=== PATIENT | male | born 1955 | race Caucasian/White ===

== ENCOUNTER → 2023-07-28 19:25 | Outpatient (REF) | payer OTHER, SELFPAY | LOC: MRI 19:25 | PROVIDERS: ATTENDING PHYSICIAN Student in an Organized Health Care Education/Training Program | DX: M47.816 Spondylosis without myelopathy or radiculopathy, lumbar region (principal); M51.36 Other intervertebral disc degeneration, lumbar region | CPT/HCPCS: 72148; 73721 ==

== ENCOUNTER → 2023-08-26 13:23 | Outpatient (REF) | payer OTHER, SELFPAY | LOC: RAD 13:23 | PROVIDERS: ATTENDING PHYSICIAN Physician Assistant; FAMILY PHYSICIAN Family Medicine | DX: N13.30 Unspecified hydronephrosis (principal) | CPT/HCPCS: 76775 ==

== ENCOUNTER 2023-12-30 20:02 | Emergency (ER) | payer OTHER, SELFPAY ==
[2023-12-30 20:08] VITALS: BP 110/70
[2023-12-30 20:31] LABS: % Basophils 0.6 % (0-2); % Eosinophils 0.8 % (0-6); % Immature Granulocytes 0.3 % (0-0.5); % Lymphocytes 14.8 % (20.5-51.1); % Monocytes 6.2 % (1.7-9.3); % Neutrophils 77.3 % (42.2-75.2); Absolute Basophils 0.1 10^3/uL (0-0.2); Absolute Eosinophils 0.1 10^3/uL (0-0.7); Absolute Lymphocytes 1.5 10^3/uL (1.2-3.4); Absolute Monocytes 0.7 10^3/uL (0.1-0.6); Absolute Neutrophils 8.1 10^3/uL (1.4-6.5); Hematocrit 41.3 % (39.0-52.0); Hemoglobin 14.4 g/dL (13.0-18.0); Mean Corp Hgb Conc. 34.9 g/dL (33.0-37.0); Mean Corpuscular Hgb 31.3 pg (27.0-31.0); Mean Corpuscular Volume 89.8 fL (80.0-94.0); Mean Platelet Volume 9.4 fL (7.4-10.4); Nucleated Red Blood Cells % 0 % (-); Platelet Count 259 10^3/uL (130-400); Red Cell Dist. Width 13.1 % (11.5-14.5); White Blood Cell Count 10.4 10^3/uL (4.8-10.8)
[2023-12-30 20:41] LABS: Lactic Acid 0.8 mmol/L (0.7-2.0)
[2023-12-30 20:43] LABS: ALT (SGPT) 22 U/L (0-50); AST (SGOT) 30 U/L (17-59); Albumin 4.3 g/dl (3.5-5.0); Alkaline Phosphatase 93 U/L (38-126); Blood Urea Nitrogen 20 mg/dl (9-20); Calcium 9.5 mg/dl (8.4-10.2); Carbon Dioxide 28 mmol/L (22-30); Chloride 101 mmol/L (98-107); Glucose 99 mg/dl (70-99); Potassium 4.1 mmol/L (3.5-5.1); Sodium 137 mmol/L (135-145); Total Bilirubin 0.5 mg/dl (0.2-1.3); Total Protein 7.1 g/dl (6.3-8.2); eGFR > 60.00
--- NOTE | 2023-12-30 21:29 | ED.GENMED ---
History of Present Illness
General
Chief Complaint: Fever
Source: patient
Exam Limitations: none
Time Seen by Provider: 12/30/23 21:19
History of Present Illness
History of Present Illness:
68-year-old male presents with complaints of onset of chills. He states his Givens catheter was exchanged 2 days ago. He notes shaking chills at home but denies cough chest pain or abdominal pain. No other complaints at this time.
Phy Exam
Physical Exam
Physical Exam:
General: Well-appearing male no acute respiratory distress HEENT: Normocephalic atraumatic
Heart: Regular rate and rhythm no murmurs
Lungs: Clear no wheeze or rales
Abdomen is soft nontender nondistended no guarding rebound normal bowel sounds
Extremities: No cyanosis or edema
Course
Orders/Labs/Results
Orders:
Orders
12/30/23 20:13
Electrocardiogram (*1) Urgent
Reason for Study: Other
Other Reason for Exam: Possible Sepsis
Cardiac Monitoring- Treatment ONCE
EKG- Treatment ONCE
IV Insert/Care/Rem.- Treatment PRN
Straight cath- Treatment ONCE
O2 Therapy [RESP] Urgent
Titrate/Wean O2 to maintain O2 sat greater than (%): 93
Special Instructions: TO MAINTAIN CONTINUOUS O2 SATS > OR = 93%
Pulse Ox/cont/shift [RESP] Urgent
Quantity: 1
Special Instructions: CONTINUOUS
12/30/23 20:21
Complete Blood Count/With Diff Urgent
Comprehensive Metabolic Panel Urgent
Lactic Acid Q4H
Comment: ON ICE, CANCEL 2ND ORDER IF FIRST LACTIC ACID LEVEL <2
12/30/23 21:53
COVID-19 Antigen Urgent
Source: Nasal Swab
Urinalysis Reflex To Culture Urgent
Date Specimen was Collected: 12/30/23
Time Specimen was Collected: 20:13
Urine Microscopic Reflex Cult Urgent
Urine Culture Urgent
RAJESH Source: U
Specimen Description:
Date Specimen was Collected: 12/30/23
Time Specimen was Collected: 20:13
12/30/23 23:04
CefTRIAXone [Rocephin] 1,000 mg IV NOW STA
12/31/23 00:15
Lactic Acid Q4H
Comment: ON ICE, CANCEL 2ND ORDER IF FIRST LACTIC ACID LEVEL <2
Abnormal Lab Results
12/30/23 12/30/23
20:21 21:53
RBC 4.60 L 10^6/uL
(4.70-6.10)
MCH 31.3 H pg
(27.0-31.0)
Absolute Neuts (auto) 8.1 H 10^3/uL
(1.4-6.5)
Absolute Monos (auto) 0.7 H 10^3/uL
(0.1-0.6)
Neutrophils % 77.3 H %
(42.2-75.2)
Lymphocytes % 14.8 L %
(20.5-51.1)
Ur Occult Blood Reflex 1+ A
(Negative)
Urine Nitrite (Reflex) Positive A
(Negative)
Leukocyte Esterase Rfl 2+ A
(Negative)
Urine WBC (Reflex) 70-80 A /HPF
(0-5)
Urine Bacteria (Reflex) Moderate A
(Negative)
12/30/23 20:21
12/30/23 20:21
Vital Signs
Initial and Last Documented VS:
Initial Vital Signs
Temp Pulse Resp BP Pulse Ox
99.6 F 75 28 110/70 100
12/30/23 20:08 12/30/23 20:08 12/30/23 20:08 12/30/23 20:08 12/30/23 20:08
Last Documented Vital Signs
Temp Pulse Resp BP Pulse Ox
99.6 F 73 11 107/65 100
12/30/23 20:08 12/30/23 22:00 12/30/23 22:00 12/30/23 22:00 12/30/23 20:08
MDM/Problems Addressed
Differential Diagnosis Includes:
Onset of shaking chills today. Recent Givens catheter exchange. Question UTI versus viral illness versus bacterial infection. Lungs are clear. No respiratory distress. COVID test ordered labs pending urinalysis pending. No fever here.
Temperature is 99.6.
*Critical Care Note
Total Time (30-74mins, 75-104mins- exclusive of procedures): Not Applicable
Update Note
Update Note:
Urinalysis nitrite positive with white cells and bacteria. Suspect UTI. Overall nontoxic. Vital signs stable afebrile here but describes rigors at home. Will cover with a dose of Rocephin IV and sent home with Omnicef. Return precautions given
ED Attending Note
-
Portions of this chart may have been created with voice recognition software.� Occasional wrong word or��sound alike� substitutions may have occurred due to the inherent limitations of voice recognition software.
Discharge Plan
Departure
Patient Disposition: Home (Routine Discharge)
Date of Disposition: 12/30/23
Time of Disposition: 23:14
Patient with high blood pressure during this ER visit?: No
Discharge Problem:
Urinary tract infection
Instructions: Urinary Tract Infection, Adult ED
Prescriptions:
New
cefdinir 300 mg capsule
300 mg PO BID Qty: 14 0RF
Referrals:
Hiren Roe CRNP [Family Provider] -
Activity Restrictions/Additional Instructions:
Drink plenty of fluids. Take antibiotics as directed. Please return here for fever vomiting or other concerning findings. Follow-up with your family doctor
Interventions
Interventions:
*Risk Screen - Suicide Last Done: 12/30/23 20:08
*General Assessment Last Done: 12/30/23 20:08
*Neglect/Abuse Screening Last Done: 12/30/23 20:08
ED- Fall Risk Assessment Last Done: 12/30/23 20:08
*ED COVID-19 Vaccine History Last Done: 12/30/23 20:08
ED- Neurological Assessment Last Done: 12/30/23 21:57
ED-Skin Assessment Last Done: 12/30/23 21:57
Discharge Date and Time
Print Language: THAI
[2023-12-30 21:55] VITALS: BMI 27.6
[2023-12-30 22:00] VITALS: BP 107/65
[2023-12-30 22:17] LABS: Urine Albumin Trace (Neg - Trace); Urine Bilirubin Negative (Negative); Urine Character Slightly Cloudy (Clear); Urine Color Yellow; Urine Glucose Negative (Negative); Urine Ketone Negative (Negative); Urine Leukocyte 2+ (Negative); Urine Nitrite Positive (Negative); Urine Occult Blood 1+ (Negative); Urine Urobilinogen Negative (Neg - 1+)
[2023-12-30 22:23] LABS: COVID-19 Antigen Negative (Negative)
[2023-12-30 22:24] LABS: Urine Bacteria Moderate (Negative); Urine Red Blood Cell 0-2 /HPF (0-2); Urine White Cell 70-80 /HPF (0-5)
[2023-12-30] MEDS: ROCEPHIN 1000 MG IV (23:45)
== END 2023-12-30 23:55 | disposition home or self-care (01) ==
LOC: EMR 20:02
PROVIDERS: Emergency Medicine; Physician Assistant; EMERGENCY PHYSICIAN Emergency Medicine; FAMILY PHYSICIAN Nurse Practitioner Family
DX: N39.0 Urinary tract infection, site not specified (principal); Z11.52 Encounter for screening for COVID-19
CPT/HCPCS: 99284; 96374; 80053; 81003; 81015; 83605; 85025; 87077; 87086; 87186; 87811; 93005